=== PATIENT | female | born 1990 | race Hispanic/Latino ===

== ENCOUNTER 2017-09-20 12:18 | Emergency (ER) | payer OTHER ==
[2017-09-20 12:26] VITALS: BP 121/78; PULSE 95; RESP 16; TEMP 97.6; O2SAT 99
--- NOTE | 2017-09-20 12:34 | ED PDOC ---
Lower Extremity Pain/Injury Time Seen by Provider: 09/20/17 12:23 Chief Complaint (Nursing): Lower Extremity Problem/Injury Chief Complaint (Provider): Lower Extremity Problem/Injury History Per: Patient History/Exam Limitations: no limitations Onset/Duration Of Symptoms: Days (x1) Current Symptoms Are (Timing): Still Present Additional Complaint(s): 26 year old female who presents to the emergency department with a complaint of left knee pain associated with swelling and painful ambulation status post tripping/falling on metal post from ground last night. Denied any other bodily injuries. PMD: none provided Past Medical History Reviewed: Historical Data, Nursing Documentation, Vital Signs Vital Signs: Last Vital Signs Temp 97.6 F 09/20/17 12:23 Pulse 95 H 09/20/17 12:23 Resp 16 09/20/17 12:23 BP 121/78 09/20/17 12:23 Pulse Ox 99 09/20/17 12:23 - Medical History PMH: No Chronic Diseases - Surgical History Surgical History: No Surg Hx - Family History Family History: States: Unknown Family Hx - Social History Current smoker - smoking cessation education provided: Yes Alcohol: Social Drugs: Denies - Home Medications Home Medications: Ambulatory Orders Medication Instructions Recorded No Known Home Med 09/20/17 - Allergies Allergies/Adverse Reactions: Allergies Allergy/AdvReac Type Severity Reaction Status Date / Time Penicillins Allergy RASH Verified 09/20/17 12:22 Review of Systems ROS Statement: Except As Marked, All Systems Reviewed And Found Negative Musculoskeletal: Positive for: Leg Pain (left knee with swelling and painful ambulation). Negative for: Other (other bodily injuries) Physical Exam - Reviewed Nursing Documentation Reviewed: Yes Vital Signs Reviewed: Yes - Physical Exam Appears: Positive for: Well, Non-toxic, No Acute Distress Extremity: Positive for: Normal ROM (anterior left knee, inferior to patella actively able to extend to 0 degrees), Tenderness (anterior left knee, inferior to patella), Swelling (large amount edema with minimal ecchymosis to anterior left knee, inferior to patella), Other (anterior left knee, inferior to patella superfical abrasion) Neurologic/Psych: Positive for: Alert (x3), Oriented - ECG O2 Sat by Pulse Oximetry: 99 (RA) Pulse Ox Interpretation: Normal Medical Decision Making Medical Decision Making: Initial Impression: Left knee injury S/P fall Initial Plan: * Xray knee (left) * Adacel 0.5ml IM Scribe Attestation: Documented by Bhumika Tirado, acting as a scribe for Bryon Land PA-C. Provider Scribe Attestation: All medical record entries made by the Scribe were at my direction and personally dictated by me. I have reviewed the chart and agree that the record accurately reflects my personal performance of the history, physical exam, medical decision making, and the department course for this patient. I have also personally directed, reviewed, and agree with the discharge instructions and disposition. Disposition - Clinical Impression Clinical Impression: Knee injury - Patient ED Disposition Is Patient to be Admitted: No - Disposition Referrals: Bryant Jasso MD [Staff Provider] - Kemar Roberts [Outside] Disposition: Routine/Home Disposition Time: 13:02 Condition: STABLE Instructions: Knee Sprain (ED), Abrasion (ED), Crutch Instructions (ED) Forms: [employer] ([place]), [facility] ED School/Work Excuse Print Language: YI
--- NOTE | 2017-09-20 13:31 | RAD ---
PROCEDURE: Left knee dated 09/20/2017. HISTORY: Pain. COMPARISON: None. FINDINGS: BONES: Normal. No fracture. JOINTS: Joint spaces preserved. No significant osteoarthritis. JOINT EFFUSION: Tiny suprapatellar joint effusion. OTHER FINDINGS: None. IMPRESSION: No evidence of acute displaced fracture nor dislocation. Tiny suprapatellar joint effusion.
== END 2017-09-20 13:29 | disposition home or self-care (01) ==
LOC: H.ER 12:18
DX: S89.92XA Unspecified injury of left lower leg, initial encounter (principal); W19.XXXA Unspecified fall, initial encounter; Y92.89 Other specified places as the place of occurrence of the external cause; F17.200 Nicotine dependence, unspecified, uncomplicated; Z88.0 Allergy status to penicillin